=== PATIENT | male | born 1960 | race Caucasian/White ===

== ENCOUNTER 2016-12-02 12:19 | Emergency (ER) | payer OTHER ==
[2016-12-02 14:02] LABS: BILIRUBIN NEGATIVE (NEGATIVE); BLOOD 3+ Ery/uL (NEGATIVE); CLARITY CLEAR (CLEAR); COLOR YELLOW (YELLOW); GLUCOSE (U) NORMAL (NORMAL); KETONE (U) NEGATIVE (NEGATIVE); LEUKOCYTES NEGATIVE Leu/uL (NEGATIVE); NITRITE NEGATIVE (NEGATIVE); PROTEIN NEGATIVE (NEGATIVE); SPECIFIC GRAVITY 1.025 (1.001-1.030); UROBILINOGEN 0.2 mg/dL (0.2-1.0)
[2016-12-02 14:02] LABS: BASOPHIL 0.4 % (0-2); EOSINOPHIL 0.9 % (0-5); HCT 43.3 % (42.0-52.0); HGB 14.9 g/dl (13.2-18.0); LYMPHOCYTE 16.2 % (15-48); MCH 33.2 pg (25.0-31.0); MCHC 34.4 g/dL (32.0-36.0); MCV 96.4 fL (78.0-100.0); MONOCYTE 8.7 % (0-12); NEUTROPHIL 73.8 % (41-80); PLT 170 K/uL (150-400); RBC 4.49 M/uL (4.70-6.00); WBC 9.3 K/uL (4.0-10.5)
[2016-12-02 14:07] LABS: CALCIUM OXALATE CRYSTALS TRACE; URINARY RBC TNTC
[2016-12-02 14:13] LABS: ALBUMIN 4.2 g/dL (3.5-5.0); BILIRUBIN - TOTAL 0.3 mg/dL (0.1-1.0); GLOBULIN (CALCULATION) 3.8 g/dL (2.2-4.2); POTASSIUM 4.1 mmol/L (3.5-5.1)
== END 2016-12-02 15:40 | disposition home or self-care (01) ==
LOC: FER 12:19
PROVIDERS: Nurse Practitioner
DX: N13.2 Hydronephrosis with renal and ureteral calculous obstruction (principal); Z87.442 Personal history of urinary calculi
CPT/HCPCS: 36415; 80053; 81001; 85025; J1885; J2405